=== PATIENT | male | born 1985 | race African-American/Black ===

== ENCOUNTER 2017-08-09 11:57 | Emergency (ER) | payer OTHER ==
[2017-08-09 12:04] VITALS: BP 126/98; PULSE 80; TEMP 97.8; BMI 26.7
--- NOTE | 2017-08-09 12:53 | PDOC ---
History of Present Illness - General Chief Complaint: Rash Stated Complaint: ALLERGIC REACTION Time Seen by Provider: 08/09/17 12:27 History Source: Patient - History of Present Illness Timing/Duration: reports: other Location: reports: extremities, genitalia, torso Past History - Past Medical History Allergies/Adverse Reactions: Allergies Allergy/AdvReac Type Severity Reaction Status Date / Time No Known Allergies Allergy Verified 08/09/17 12:00 Home Medications: Ambulatory Orders Permethrin 5% Topical Cream [Elimite -] 1 applic TP ONCE #1 tube 08/09/17 Permethrin 5% Topical Cream [Elimite -] 1 applic TP ONCE #1 tube 08/09/17 COPD: No DVT: No Dementia: No - Immunization History Immunization Up to Date: Yes - Suicide/Smoking/Psychosocial Hx Smoking History: Never smoked Information on smoking cessation initiated: No Hx Alcohol Use: No Drug/Substance Use Hx: No Substance Use Type: None Review of Systems - Review of Systems Constitutional: No: Fever Integumentary: Yes: Pruritus, Rash *Physical Exam - Vital Signs Last Vital Signs Temp Pulse Resp BP Pulse Ox 97.8 F 80 17 126/98 99 08/09/17 12:01 08/09/17 12:01 08/09/17 12:01 08/09/17 12:01 08/09/17 12:01 - Physical Exam General Appearance: Yes: Appropriately Dressed. No: Apparent Distress HEENT: positive: Normal Voice Neck: positive: Supple Respiratory/Chest: negative: Respiratory Distress (small, erythematous, non- descript papules to fingerwebs b/l, erythematous excoriated papules to groin b/ l ) Extremity: positive: Other (scaly rash to dorsum of toes and toewebs b/l) Medical Decision Making - Medical Decision Making 08/09/17 12:54 32 yo M, no sig hx, here w/ pruritic rash to hands, trunk and groin x 2 weeks. Used cortisone cream which relieved itching but not rash. States when symptoms started, he was incarcerated. Also c/o pruritic rash to feet for unclear duration See exam Strong suspicion for scabies -dc w/ permethrin and instruction to wash bedding/clothes in hot water, contact precautions given -derm f/u for possible athletes foot *DC/Admit/Observation/Transfer Diagnosis at time of Disposition: Scabies - Discharge Dispostion Disposition: HOME Condition at time of disposition: Good - Prescriptions Prescriptions: Permethrin 5% Topical Cream [Elimite -] 1 applic TP ONCE #1 tube Permethrin 5% Topical Cream [Elimite -] 1 applic TP ONCE #1 tube - Referrals - Patient Instructions Printed Discharge Instructions: DI for Scabies Additional Instructions: You may have scabies Massage permethrin cream thoroughly into the skin from the neck to the soles of the feet, including areas under the fingernails and toenails. Thirty grams is usually sufficient for a single application for an average adult. Permethrin should be removed by washing (shower or bath) after 8 to 14 hours. Treatment is often performed overnight. A second application one to two weeks later may be necessary to eliminate mites and is typically performed Please wash all affected clothes and beddings in hot water You may return to work or school 1 day after application of cream [id number] follow with podiatry for possible athletes foot - Post Discharge Activity Forms/Work/School Notes: Back to Work
== END 2017-08-09 12:54 | disposition home or self-care (01) ==
LOC: JERFT 11:57
DX: B86 Scabies (principal)
CPT/HCPCS: 99281-25

== ENCOUNTER 2017-12-03 16:28 | Emergency (ER) | payer SELFPAY ==
[2017-12-03 16:52] VITALS: BP 128/94; PULSE 93; TEMP 99.4; BMI 28.1
--- NOTE | 2017-12-03 17:04 | PDOC ---
History of Present Illness - General Chief Complaint: Cold Symptoms Stated Complaint: COLD SYMPTOMS Time Seen by Provider: 12/03/17 17:00 - History of Present Illness Initial Comments: 32-year-old male without comorbidities presents for evaluation of one day of upper respiratory symptoms and cough he has no associated systemic symptoms. He is otherwise healthy 12/03/17 17:02 Past History - Past Medical History Allergies/Adverse Reactions: Allergies Allergy/AdvReac Type Severity Reaction Status Date / Time No Known Allergies Allergy Verified 12/03/17 16:50 Home Medications: Ambulatory Orders NK [No Known Home Medication] 12/03/17 COPD: No DVT: No Dementia: No - Immunization History Immunization Up to Date: Yes - Suicide/Smoking/Psychosocial Hx Smoking History: Never smoked Hx Alcohol Use: Yes (every other day) Drug/Substance Use Hx: No Substance Use Type: Alcohol Review of Systems - Review of Systems HEENTM: Yes: Nose Congestion Respiratory: Yes: Cough All Other Systems: Reviewed and Negative *Physical Exam - Vital Signs Last Vital Signs Temp Pulse Resp BP Pulse Ox 99.4 F 93 H 18 128/94 98 12/03/17 16:50 12/03/17 16:50 12/03/17 16:50 12/03/17 16:50 12/03/17 16:50 - Physical Exam Comments: HEAD: NC/AT EYES: Conjuntiva clear Ears: Canals and TM's normal NOSE: No d/c, turbinates injected THROAT: Moist mucous membrances, oral pharanx clear, uvula midline NECK: Supple without adenopathy CARDIAC: S1 S2 LUNGS: CTA Full and Equal breath sounds ABDOMEN: Soft NT ND MS: Full ROM in all joints without edema NEUROLOGIC: No gross sensory or motor deficits, NVID SKIN: Normal color and temperature no lesions or rashes 12/03/17 17:03 Medical Decision Making - Medical Decision Making Upper respiratory infection can be treated with outpatient follow-up no intervention necessary now 12/03/17 17:03 *DC/Admit/Observation/Transfer Diagnosis at time of Disposition: Upper respiratory infection - Discharge Dispostion Disposition: HOME Condition at time of disposition: Stable Decision to Admit order: No - Referrals Referrals: Evin Denny [Non Staff, Medical] - - Patient Instructions Printed Discharge Instructions: DI for Viral Upper Respiratory Infection -- Adult Additional Instructions: Please follow-up with the primary care physician once 2 days for further evaluation and treatment options. Return to the emergency room should symptoms worsen or go unresolved. - Post Discharge Activity
== END 2017-12-03 17:17 | disposition home or self-care (01) ==
LOC: JERFT 16:28
DX: J06.9 Acute upper respiratory infection, unspecified (principal)
CPT/HCPCS: 99281-25